=== PATIENT | male | born 1980 | race Caucasian/White ===

== ENCOUNTER 2023-09-11 19:10 | Emergency (ER) | payer MEDICARE ==
[~2023-09-11] VITALS: Ht 177.8 cm; Wt 85.7 kg
[2023-09-11] MEDS ORDERED: THIAMINE HCL 100 MG TABLET PO ONE (19:30)
[2023-09-11 19:35] LABS: BASOPHILS % (AUTO) 0.6 % (0.0-2.0); EOSINOPHILS # (AUTO) 0.1 K/uL (0.0-0.7); EOSINOPHILS % (AUTO) 1.7 % (0.0-7.0); HEMATOCRIT 40.4 % (36.7-47.1); HEMOGLOBIN 13.6 g/dL (12.5-16.3); LYMPHOCYTES # (AUTO) 0.9 K/uL (0.8-4.8); LYMPHOCYTES % (AUTO) 12.6 % (20.5-51.5); MEAN CORPUSCULAR HEMOGLOBIN 30.6 uug (23.8-33.4); MEAN CORPUSCULAR HGB CONC 34 g/dL (32.5-36.3); NEUTROPHILS # (AUTO) 4.9 K/uL (1.8-8.9); PLATELET COUNT (AUTO) 203 K/uL (152-348); RED BLOOD CELL COUNT(AUTO) 4.44 MIL/uL (4.06-5.63); RED CELL DISTRIBUTION WIDTH 14.3 % (12.1-16.2); WHITE BLOOD COUNT (AUTO) 6.9 K/uL (3.6-10.2)
[2023-09-11 19:38] LABS: DIFFERENTIAL COMMENT 1
[2023-09-11 19:39] LABS: NEUTROPHILS % (AUTO) 71.1 % (38.5-71.5)
[2023-09-11 19:43] LABS: CALCIUM 8.7 mg/dL (8.5-10.1); CARBON DIOXIDE 27 mmol/L (21-32); CHLORIDE 100 mmol/L (98-107); GLUCOSE 105 mg/dL (74-106); POTASSIUM 3.5 mmol/L (3.5-5.1); SODIUM SERUM 137 mmol/L (136-145); UREA NITROGEN, BLOOD 30 mg/dL (7-18)
[2023-09-11 19:50] LABS: ALANINE AMINOTRANSFERASE 54 U/L (16-63); ALBUMIN 3.9 g/dL (3.4-5.0); ALKALINE PHOSPHATASE 55 U/L (50-136); ASPARTATE AMINOTRANSFERASE 45 U/L (15-37); BILIRUBIN,DIRECT 0.2 mg/dL (0.0-0.2); BILIRUBIN,TOTAL 1.1 mg/dL (0.2-1.0); TOTAL PROTEIN, SERUM 6.9 g/dL (6.4-8.2)
[2023-09-11 19:51] LABS: ACETAMINOPHEN < 2.0 ug/mL (10-30)
[2023-09-11 20:25] LABS: ETHANOL < 3 MG/DL (0-10)
[2023-09-11 20:52] LABS: *BLOOD, URINE NEGATIVE (NEGATIVE); *CLARITY,URINE CLEAR (CLEAR); *COLOR,URINE DARK YELLOW (YELLOW); *KETONES,URINE TRACE (NEGATIVE); *PROTEIN,URINE NEGATIVE (NEGATIVE); *UROBILINOGEN,URINE 0.2 E.U./dl (NORMAL); LEUKOCYTE ESTERASE ,URINE NEGATIVE (NEGATIVE); NITRITE, URINE NEGATIVE (NEGATIVE); PH,URINE 5.5 (5.0-8.0); UGLUCOSE NEGATIVE (NEGATIVE)
[2023-09-11 21:10] LABS: *AMPHETAMINE, URINE POSITIVE (NEGATIVE); *BARBITURATE, URINE NEGATIVE (NEGATIVE); *BENZODIAZEPINE, URINE NEGATIVE (NEGATIVE); *CANNABINOID, URINE POSITIVE (NEGATIVE); *COCCAINE, URINE NEGATIVE (NEGATIVE); *OPIATE, URINE NEGATIVE (NEGATIVE); *PHENCYCLIDINE SCREEN,URINE NEGATIVE (NEGATIVE); FENTANYL, URINE NEGATIVE (NEGATIVE)
[2023-09-11] MEDS ORDERED: THIAMINE HCL 100 MG TABLET ONE (21:11)
[2023-09-11 21:17] LABS: *BILIRUBIN,URIN 1+ (NEGATIVE)
[2023-09-12] MEDS ORDERED: OLANZAPINE 10 MG VIAL IM ONE ×2 (01:04→01:15)
[2023-09-12 15:39] VITALS: BP 122/78; TEMP 98; O2SAT 99
== END 2023-09-12 15:39 | disposition home or self-care (01) ==
LOC: ER 19:18
DX: R45.851 Suicidal ideations (principal); F15.10 Other stimulant abuse, uncomplicated; F22 Delusional disorders; F31.9 Bipolar disorder, unspecified; Z20.822 Contact with and (suspected) exposure to COVID-19
CPT/HCPCS: 36415; 85025; A4606; A4663; G0480; J2358